=== PATIENT | female | born 1995 ===

== ENCOUNTER 2018-08-04 12:25 | Emergency (ER) | payer SELFPAY ==
[2018-08-04 12:25] VITALS: BMI 26.2
[2018-08-04 13:20] VITALS: BP 113/65; RESP 20; O2SAT 100
--- NOTE | 2018-08-04 14:07 | C.PDOC ---
History Of Present Illness 23 y/o female with no known PMHx, otherwise well, presents to the ED for evaluation of 2 episodes of chest pain, associated with feeling sad and tearful. Patient reports that during episodes she also feels lightheaded and near syncopal, with hand and feet paresthesias, and bilateral hand cramping. One episode occurred last night and the other 2 days prior. Patients mom has a PMHx of anxiety and depression, and is taking medications. Patient herself has never been diagnosed with psychiatric illness. She also denies hx of cardiac disease. Otherwise patient denies any fever, chills, SOB, headache, nausea, or vomiting. Time Seen by Provider: 08/04/18 13:47 Chief Complaint (Nursing): Chest Pain History Per: Patient History/Exam Limitations: no limitations Onset/Duration Of Symptoms: Intermittent Episodes Current Symptoms Are (Timing): Gone Past Medical History Reviewed: Historical Data, Nursing Documentation, Vital Signs Vital Signs: Last Vital Signs Temp 98.8 F 08/04/18 13:15 Pulse 68 08/04/18 13:15 Resp 20 08/04/18 13:15 BP 113/65 08/04/18 13:15 Pulse Ox 100 08/04/18 13:15 Primary Care Provider: Non [facility] Provider, - Medical History PMH: No Chronic Diseases Surgical History: No Surg Hx Family History: States: No Known Family Hx - Social History Hx Tobacco Use: No Hx Alcohol Use: No Hx Substance Use: No - Immunization History Hx Tetanus Toxoid Vaccination: No Hx Influenza Vaccination: No Hx Pneumococcal Vaccination: No Review Of Systems Except As Marked, All Systems Reviewed And Found Negative. Constitutional: Negative for: Fever, Chills Eyes: Negative for: Vision Change Cardiovascular: Positive for: Chest Pain, Light Headedness Respiratory: Negative for: Shortness of Breath Gastrointestinal: Negative for: Nausea, Vomiting, Abdominal Pain, Diarrhea Musculoskeletal: Positive for: Hand Pain, Other (Hand and feet paresthesias) Neurological: Negative for: Headache, Dizziness Physical Exam - Physical Exam Appears: Well, Non-toxic, No Acute Distress Skin: Normal Color, Warm, Dry, No Diaphoretic Head: Atraumatic, Normacephalic Eye(s): bilateral: Normal Inspection, PERRL, EOMI Oral Mucosa: Moist Neck: Normal ROM Chest: Symmetrical, No Tenderness, No Ecchymosis Cardiovascular: Rhythm Regular, No Murmur Respiratory: Normal Breath Sounds, No Rales, No Rhonchi, No Wheezing Gastrointestinal/Abdominal: Soft, No Tenderness, No Distention Extremity: Normal ROM, No Pedal Edema, No Calf Tenderness Pulses: Left Dorsalis Pedis: Normal, Right Dorsalis Pedis: Normal Neurological/Psych: Oriented x3, Normal Speech, Normal Cranial Nerves, Other (No focal deficits, Speaking in full sentences) ED Course And Treatment O2 Sat by Pulse Oximetry: 100 Pulse Ox Interpretation: Normal Medical Decision Making Medical Decision Making: Impression: Anxiety Plan: Patient will be discharged home with Rx for Ativan. Advised to take medication prn for anxiety and follow up with the clinic. Disposition Counseled Patient/Family Regarding: Diagnosis, Need For Followup, Rx Given - Disposition Referrals: [facility] [Outside] Disposition: HOME/ ROUTINE Disposition Time: 14:05 Condition: STABLE Prescriptions: Lorazepam [Ativan] 0.5 mg PO PRN PRN #5 tab PRN Reason: Anxiety Forms: [facility] (Gu[place]ian), Gen Discharge Inst Guamanian - POA Present On Arrival: None - Clinical Impression Clinical Impression: Anxiety - Scribe Statement The provider has reviewed the documentation as recorded by the Zhen Lee Provider Attestation: All medical record entries made by the Karlibnupur were at my direction and personally dictated by me. I have reviewed the chart and agree that the record accurately reflects my personal performance of the history, physical exam, medical decision making, and the department course for this patient. I have also personally directed, reviewed, and agree with the discharge instructions and disposition.
[2018-08-04 14:28] VITALS: PULSE 65; TEMP 98
--- NOTE | 2018-08-05 11:28 | CARD ---
APPROVED REPORT Date of service: 08/04/2018 EKG Measurement Heart [id number] <Conclusion> Normal sinus rhythm with sinus arrhythmia Normal ECG
== END 2018-08-04 14:28 | disposition home or self-care (01) ==
LOC: C.ER 12:25
DX: F41.9 Anxiety disorder, unspecified (principal)